=== PATIENT | male | born 1970 | race Caucasian/White ===

== ENCOUNTER 2016-11-21 11:14 | Emergency (ER) | payer BC ==
[2016-11-21 12:51] VITALS: BP 111/83
--- NOTE | 2016-11-21 13:22 | UC ---
Respiratory Complaint HPI - HPI Summary HPI Summary: patient feels like " he has a bad cold" sore throat, lightheaded with change in position, some SOB on exertion, cough present. - History of Current Complaint Chief Complaint: UCGeneralIllness Stated Complaint: SORE THROAT CONGESTION NAUSEA Time Seen by Provider: 11/21/16 13:03 Hx Obtained From: Patient Onset/Duration: Sudden Onset, Lasting Days Timing: Constant Severity Initially: Moderate Severity Currently: Severe Character: Cough: Nonproductive Aggravating Factors: Exertion, Deep Breaths Alleviating Factors: Nothing Associated Signs And Symptoms: Positive: Wheezing, Dizziness, Nasal Congestion - Risk Factors Pulmonary Embolism Risk Factors: Negative - Allergies/Home Medications Allergies/Adverse Reactions: Allergies Allergy/AdvReac Type Severity Reaction Status Date / Time Aspirin Allergy Intermediate Rash Verified 06/18/12 20:53 PMH/Surg Hx/FS Hx/Imm Hx Previously Healthy: Yes - Surgical History Surgical History: Yes Surgery Procedure, Year, and Place: HERNIA REPAIR--APPROX AGE 5 - Family History Known Family History: Positive: Hypertension, Respiratory Disease - Social History Alcohol Use: None Substance Use Type: None Smoking Status (MU): Heavy Every Day Tobacco Smoker Type: Cigarettes Amount Used/How Often: 1/2 PPD Length of Time of Smoking/Using Tobacco: 33 YRS Have You Smoked in the Last Year: Yes Review of Systems Constitutional: Fatigue Skin: Negative Eyes: Negative ENT: Sore Throat, Nasal Discharge Respiratory: Shortness Of Breath, Cough Cardiovascular: Negative Gastrointestinal: Negative Genitourinary: Negative Motor: Negative Neurovascular: Negative Musculoskeletal: Negative Neurological: Headache Psychological: Negative All Other Systems Reviewed And Are Negative: Yes Physical Exam Triage Information Reviewed: Yes Appearance: Well-Nourished, Ill-Appearing, Pain Distress Vital Signs: Initial Vital Signs Temp 97.9 F 11/21/16 12:45 Pulse 69 11/21/16 12:45 Resp 16 11/21/16 12:45 BP 111/83 11/21/16 12:45 Pulse Ox 99 11/21/16 12:45 Vital Signs Reviewed: Yes Eye Exam: Normal Eyes: Positive: Conjunctiva Clear ENT Exam: Normal ENT: Positive: Normal ENT inspection, Hearing grossly normal, Pharyngeal erythema, Nasal drainage, TMs normal, Muffled/hoarse voice Dental Exam: Normal Neck exam: Normal Neck: Positive: Supple, Nontender, No Lymphadenopathy Respiratory: Positive: Chest non-tender, No respiratory distress, No accessory muscle use, Decreased breath sounds - RLL, Wheezing, Inspiration Cardiovascular Exam: Normal Cardiovascular: Positive: RRR, No Murmur, Pulses Normal Abdominal Exam: Normal Abdomen Description: Positive: Nontender, No Organomegaly, Soft Bowel Sounds: Positive: Present Musculoskeletal Exam: Normal Musculoskeletal: Positive: Strength Intact, ROM Intact, No Edema Neurological Exam: Normal Neurological: Positive: Alert, Muscle Tone Normal Psychological Exam: Normal Skin Exam: Normal UC Diagnostic Evaluation - Laboratory O2 Sat by Pulse Oximetry: 99 Respiratory Course/Dx - Course Course Of Treatment: hx obtained, exam performed, meds reviewed, chest xray obtained, no acute disease, emphysema noted. patient is not currently on any medications he has not had inhalers in a while do to loss of insurance, he now has insurance and getting back into [facility]. meds prescribed. - Differential Dx/Diagnosis Differential Diagnosis/HQI/PQRI: Asthma, Bronchitis, Exacerbation Of COPD, Lower Resp Infection, Pulmonary Embolism Provider Diagnoses: emphysema. lightheaded/dizzy. viral cold symptoms Discharge - Discharge Plan Condition: Stable Disposition: HOME Patient Education Materials: Emphysema (ED), COPD (Chronic Obstructive Pulmonary Disease) (ED) Additional Instructions: I have prescribed the following medications for the acute issue you have right now 1. prednisone daily for the next 7 days 2. albuterol inhaler every 4 hours as needed 3. The spiriva and Salmeterol are to be taken daily to prevent exacerbations. take these even if you feel good. Follow up with [facility] to get a provider to follow up with.
--- NOTE | 2016-11-21 13:33 | RAD ---
Indication: Shortness of breath, cough. 2 views of the chest including dual energy PA views demonstrates no mediastinal shift. Heart is of normal size and configuration. Lung cordova appear hyperinflated. No alveolar consolidation is noted. When compared to previous exam of June 18, 2012 no significant change is noted. IMPRESSION: NO ACTIVE CARDIOPULMONARY DISEASE IS NOTED.
== END 2016-11-21 13:58 | disposition home or self-care (01) ==
LOC: UCCORT 11:14
DX: J43.9 Emphysema, unspecified (principal); F17.210 Nicotine dependence, cigarettes, uncomplicated; R42 Dizziness and giddiness; J00 Acute nasopharyngitis [common cold]; Z88.6 Allergy status to analgesic agent
CPT/HCPCS: 71020; 87651; 99212; G0463

== ENCOUNTER 2019-03-12 08:27 | Emergency (ER) | payer SELFPAY ==
[2019-03-12 08:51] VITALS: BP 122/88
--- NOTE | 2019-03-12 10:17 | UC ---
General HPI - HPI Summary HPI Summary: R upper gum pain x 2 weeks. area now swollen. has dental f/u next week. - History of Current Complaint Chief Complaint: UCDentalProblem Stated Complaint: RIGHT SIDE DENTAL PAIN Time Seen by Provider: 03/12/19 10:12 Hx Obtained From: Patient Onset/Duration: Gradual Onset Timing: Constant Pain Intensity: 10 Aggravating: everything Alleviating: nothing Associated Signs & Symptoms: Negative: Fever, Headache - Allergy/Home Medications Allergies/Adverse Reactions: Allergies Allergy/AdvReac Type Severity Reaction Status Date / Time aspirin Allergy Rash Verified 03/12/19 08:46 PMH/Surg Hx/FS Hx/Imm Hx Previously Healthy: Yes - Surgical History Surgical History: Yes Surgery Procedure, Year, and Place: HERNIA REPAIR--APPROX AGE 5 - Family History Known Family History: Positive: Hypertension, Respiratory Disease - Social History Occupation: Employed Full-time Alcohol Use: None Substance Use Type: None Smoking Status (MU): Heavy Every Day Tobacco Smoker Type: Cigarettes Amount Used/How Often: 1/2 PPD Length of Time of Smoking/Using Tobacco: 33 YRS Have You Smoked in the Last Year: Yes Review of Systems All Other Systems Reviewed And Are Negative: No Constitutional: Negative: Fever, Chills Skin: Negative: Rash Eyes: Negative: Photophobia ENT: Positive: Dental Pain. Negative: Ear Ache, Nasal Discharge Neurological: Negative: Headache Physical Exam Triage Information Reviewed: Yes Appearance: Well-Appearing Vital Signs: Initial Vital Signs Temp 98.3 F 03/12/19 08:47 Pulse 67 03/12/19 08:47 Resp 17 03/12/19 08:47 BP 122/88 03/12/19 08:47 Pulse Ox 99 03/12/19 08:47 Vital Signs Reviewed: Yes Eyes: Positive: Conjunctiva Clear ENT: Positive: Pharynx normal, TMs normal. Negative: Nasal congestion, Nasal drainage Dental: Positive: Gross Decay/Caries @ - wide spread. R upper gum - lateral aspect very tender with mild correlating facial swelling but not fluctuant. Neck: Positive: Supple, Nontender, No Lymphadenopathy Respiratory: Positive: No accessory muscle use Neurological: Positive: Alert Psychological: Positive: Age Appropriate Behavior Skin Exam: Normal Skin: Negative: Rashes Course/Dx - Diagnoses Provider Diagnosis: Dental abscess Discharge - Sign-Out/Discharge Documenting (check all that apply): Patient Departure All imaging exams completed and their final reports reviewed: No Studies - Discharge Plan Condition: Stable Disposition: HOME Prescriptions: Amoxicillin PO (*) [Amoxicillin 875 MG (*)] 875 mg PO BID 10 Days #20 tab Patient Education Materials: Dental Abscess (ED) Forms: *Work Release Referrals: No Primary Care Phys,NOPCP [Primary Care Provider] - Additional Instructions: FOLLOW UP [facility] ON 03/18/19 SCHEDULED TAKE MOTRIN 600MG EVERY 8 HOURS AND TYLENOL 650MG EVERY 6 HOURS X 3 DAYS THEN NEEDED. GO TO ER FOR ANY WORSENING. - Billing Disposition and Condition Condition: STABLE Disposition: Home
== END 2019-03-12 10:25 | disposition home or self-care (01) ==
LOC: UCCORT 08:27
DX: K04.7 Periapical abscess without sinus (principal); F17.210 Nicotine dependence, cigarettes, uncomplicated
CPT/HCPCS: 99212; G0463